=== PATIENT | male | born 1975 | race Caucasian/White ===

== ENCOUNTER 2018-10-04 18:23 | Inpatient (IN) | payer MEDICAID ==
[~2018-10-04] VITALS: Ht 180.3 cm; Wt 86.6 kg
[2018-10-04 19:15] VITALS: BP_SYST 101
--- NOTE | 2018-10-04 20:56 | NUR ---
2Patient to ER bed 04 for evaluation. Side rails up. Report given to Eren LLOYD.
--- NOTE | 2018-10-04 20:56 | NUR ---
Pt c/o open sore with redness, swelling, and pain to right elbow x 1 week. Pt states sores keep popping up all over body. Dime sized scab to Right elbow, no drainage to site.
--- NOTE | 2018-10-04 21:30 | NUR ---
ER Dr. Rodney at bedside examining patient.
[2018-10-04] MEDS ORDERED: LORazepam 1 MG TABLET PO ONE (21:45)
[2018-10-04] MEDS ORDERED: IBUPROFEN 800 MG TABLET PO ONE (21:45)
[2018-10-04] MEDS ORDERED: SULFAMETHOXAZOLE/TRIMETHOPR DS 1 TABLET PO ONE (21:45)
--- NOTE | 2018-10-04 22:12 | NUR ---
Pt states "Ibuprofen isn't going to do anything for the pain." "I have a staff infection, Bactrim doesn't work." "I want to speak to the doctor." Pt agrees to take medications and Dr. Wright notified of pt.'s request.
--- NOTE | 2018-10-04 23:16 | NUR ---
Pt refuses IVFs ordered. Lab at bedside. Addendum: 10/04/[address] Wright notified.
[2018-10-04] MEDS: NS 1000 ML IV.SOLN IV ONE ×2 (23:31→23:42)
[2018-10-04 23:38] LABS: HEMOGLOBIN 13.8 g/dL (14.0-18.0); RED BLOOD CELL COUNT(AUTO) 4.59 MIL/uL (4.2-6.2); WHITE BLOOD COUNT (AUTO) 12.7 K/uL (4.8-10.8)
[2018-10-04 23:39] LABS: BASOPHILS % (AUTO) 0.5 % (0.0-2.0); EOSINOPHILS % (AUTO) 1.7 % (0.0-4.0); HEMATOCRIT 41.4 % (36-54); LYMPHOCYTES # (AUTO) 1.9 K/uL (1.0-5.5); MEAN CORPUSCULAR HEMOGLOBIN 30 pg (27-31); MEAN CORPUSCULAR HGB CONC 33 % (32-36); MEAN CORPUSCULAR VOLUME 90 fL (79.0-98.0); MONOCYTES # (AUTO) 1.1 K/uL (0.0-1.0); MONOCYTES % (AUTO) 8.5 % (1.7-9.3); NEUTROPHILS # (AUTO) 9.5 K/uL (1.8-7.7); NEUTROPHILS % (AUTO) 74.3 % (40.0-70.0); PLATELET COUNT (AUTO) 348 K/uL (130-430); RED CELL DISTRIBUTION WIDTH 12.5 % (9.0-15.0)
[2018-10-04 23:40] LABS: BASOPHILS # (AUTO) 0.1 K/uL (0.0-0.2); EOSINOPHILS # (AUTO) 0.2 K/uL (0.0-0.4)
[2018-10-04 23:41] LABS: CALCIUM 8.4 mg/dL (8.4-11.0); CREATININE 0.87 mg/dL (0.55-1.30); POTASSIUM 4.5 mmol/L (3.5-5.1)
[2018-10-04 23:46] LABS: ALBUMIN 3.4 g/dL (3.4-4.8); TOTAL BILIRUBIN 0.3 mg/dL (0.0-1.0)
[2018-10-04 23:52] LABS: PROTHROMBIN TIME 10.1 SECS (9.5-12.5)
[2018-10-05] MEDS ORDERED: VANCOMYCIN HCL 1,000 MG in NS 250 ML IV ONE ×2
[2018-10-05] MEDS ORDERED: VANCOMYCIN HCL 1000 MG/VIAL IV ONE (00:11)
[2018-10-05] MEDS ORDERED: fentaNYL CITRATE/PF 100 MCG/2 ML AMP IVP ONE (00:30)
--- NOTE | 2018-10-05 00:53 | NUR ---
Transfer to Med Surg. IV present no signs or symptoms of infiltration.
--- NOTE | 2018-10-05 00:53 | NUR ---
Patient will be admitted to care of Dr. Iyer. Admitted to Med Surg unit. Will go to room 124 B. Belongings list completed. Summary report printed. Report will be given at bedside.
--- NOTE | 2018-10-05 01:00 | NUR ---
ADMISSION NOTES PATIENT RECEIVED FROM ER FOR RT ARM CELLULITIS. PATIENT AAO X4. DENIES PAIN AT THIS TIME. BREATHING UNLABORED ON ROOM AIR. RT LOWER ARM RED AND SWOLLEN. PATIENT ORIENTED TO ROOM, BED CONTROLS, TV AND CALL LIGHT SYSTEM. BED IN LOWEST LOCKED POSITION. PLAN OF CARE REVIEWED WITH PATIENT.
[2018-10-05 01:52] VITALS: BP_SYST 118
--- NOTE | 2018-10-05 03:15 | NUR ---
ROUNDS PATIENT RESTING IN BED. INTERMITTENT SNORING NOTED. NO DISTRESS NOTED.
--- NOTE | 2018-10-05 06:42 | NUR ---
CLOSING NOTES PATIENT RESTING IN BED. BREATHING UNLABORED. PATIENT NEEDS ATTENDED. CALL LIGHT WITH IN REACH. BED IN LOWEST LOCKED POSITION.
[2018-10-05 08:00] VITALS: BP_SYST 117
--- NOTE | 2018-10-05 08:00 | NUR ---
OPENING NOTES Patient received resting in bed A&o x4, patient denies any acute distress or pain at this time, breathing is even and unlabored on room air, educated patient on plan of care and call light system, will continue to monitor, safety precautions in place, call light within reach.
--- NOTE | 2018-10-05 10:15 | NUR ---
NOTES patient is resting in bed A&O x4, patient denies any acute distress or pain at this time, breathing even and unlabored on room air, will continue to monitor, safety precautions in place, call light within reach.
--- NOTE | 2018-10-05 11:33 | NUR ---
CONSULT REASON FOR CONSULT: STAPH INFECTION PERSON I SPOKE WITH: DR. COLLINS (SPOKE TO THE DOCTOR IN PERSON) ORDERING PHYSICIAN: DR. DOBBS FABRICATION TECHNICIAN PHONE NUMBER: [phone]
[2018-10-05] MEDS ORDERED: VANCOMYCIN HCL 1,500 MG in NS 250 ML IV SCH (12:00)
[2018-10-05 12:08] VITALS: BP_SYST 107
--- NOTE | 2018-10-05 12:12 | NUR ---
NOTES patient is resting in bed A&O x4, patient denies any acute distress or pain, IV antibiotics infusing as ordered, will continue to monitor, breathing is even and unlabored on room air, safety precautions in place, call light within reach.
[2018-10-05] MEDS ORDERED: VANCOMYCIN HCL 1,000 MG in NS 250 ML IV SCH (12:18)
[2018-10-05] MEDS: CLINDAMYCIN 600 MG in D5W 50 ML IV SCH ×2 (14:27→17:55)
--- NOTE | 2018-10-05 14:50 | NUR ---
NOTES patient is resting in bed on his phone, patient denies any acute distress or pain at this time, patient tolerated lunch well, will continue to monitor, safety precautions in place, call light within reach.
--- NOTE | 2018-10-05 16:45 | NUR ---
NOTES patient is resting in bed, patient is A&O x4, patient denies any acute distress or pain, breathing is even and unlabored on room air, will continue to monitor, safety precautions in place, call light within reach.
[2018-10-05 17:11] VITALS: BP_SYST 108
--- NOTE | 2018-10-05 18:39 | NUR ---
CLOSING NOTE PATIENT IS RESTING IN BED A&O X4, IVF INFUSING WELL ORDERED, PATIENT DENIES ANY ACUTE DISTRESS, PAIN IS CONTROLLED AT THIS TIME, BREATHING IS EVEN AND UNLABORED ON ROOM AIR, ALL NEEDS WERE MET THROUGHOUT SHIFT, WILL ENDORSE REPORT TO ONCOMING NURSE, SAFETY PRECAUTIONS IN PLACE, CALL LIGHT WITHIN REACH.
--- NOTE | 2018-10-05 19:10 | NUR ---
OPENING NOTES RECEIVED PATIENT IN BED AAOX4. BREATHING UNLABORED ON ROOM AIR. LFA IV LINE INTACT. PLAN OF CARE REVIEWED WITH PATIENT. CALL LIGHT WITH IN EASY REACH.
[2018-10-05] MEDS ORDERED: MORPHINE 4 MG/ML INJ. SYRINGE IVP PRN (19:15)
[2018-10-05 20:42] VITALS: BP_SYST 137
[2018-10-05] MEDS: MORPHINE 4 MG/ML INJ. SYRINGE IVP PRN (20:48)
--- NOTE | 2018-10-05 20:48 | NUR ---
PAIN MGT PATIENT MEDICATED WITH MORPHINE ORDERED FOR C/O RT ARM PAIN 04/28. POSSIBLE SIDE EFFECTS OF MEDICATION DISCUSSED WITH PATIENT. VITAL SIGNS STABLE.
[2018-10-06 00:08] VITALS: BP_SYST 121
[2018-10-06] MEDS: CLINDAMYCIN 600 MG in D5W 50 ML IV SCH ×4 (00:14→17:46)
--- NOTE | 2018-10-06 00:14 | NUR ---
ATB PATIENT DUE ANTIBIOTIC INFUSED. IV LINE PATENT. VITAL SIGNS STABLE. CALL LIGHT WITH IN EASY REACH.
[2018-10-06] MEDS ORDERED: VANCOMYCIN HCL 1,500 MG in NS 250 ML IV SCH (01:00)
[2018-10-06] MEDS: VANCOMYCIN HCL 1,500 MG in NS 250 ML IV SCH ×2 (01:01→12:37)
[2018-10-06] MEDS: MORPHINE 4 MG/ML INJ. SYRINGE IVP PRN ×3 (03:33→17:46)
--- NOTE | 2018-10-06 08:00 | NUR ---
OPENING NOTE patient received resting in bed A&O x4, breathing is even and unlabored on room air, no acute distress noted, pain is controlled at this time, educated patient on plan of care and call light system, will continue to monitor, safety precautions in place, call light within reach.
--- NOTE | 2018-10-06 10:12 | NUR ---
NOTES PATIENT IS RESTING IN BED WITH EYES CLOSED, NO ACUTE DISTRESS OR PAIN IS NOTED, BREATHING IS EVEN AND UNLABORED, IVF INFUSING WELL WITH NO SIGNS OF INFILTRATION, WILL CONTINUE TO MONITOR, SAFETY PRECAUTIONS IN PLACE, CALL LIGHT WITHIN REACH.
--- NOTE | 2018-10-06 12:01 | NUR ---
SS NOTES: PLANER SETUP OPERATOR met with pt for referral of "homelessness" and "assessment". PLANER SETUP OPERATOR verified demographic information and changes have been made. Per pt he was recently released from shelter after 9 months and was living with his girlfriend until his admission in the hospital. Per pt he is currently homeless with no source of income. Pt denies any history of mental health or detox admissions but has a history of substance abuse and denies current use. Pt denies depression and anxiety. Pt denies any support system stating he has 2 elderly aunts but no financial help. PLANER SETUP OPERATOR provided pt with community resources, homeless waiver (attached on chart), and [facility] halfway list. PLANER SETUP OPERATOR informed pt of taxi voucher availability (prefers to be dropped off around [place] and [facility] in the [facility]) and informed security on clothing needs. SS will remain available when needed upon discharge.
[2018-10-06 12:02] VITALS: BP_SYST 110
--- NOTE | 2018-10-06 12:45 | NUR ---
NOTES PATIENT IS RESTING IN BED A&O X4, PATIENT DENIES ANY ACUTE DISTRESS, PAIN IS CONTROLLED AT THIS TIME, FRIEND IS AT BEDSIDE, WILL CONTINUE TO MONITOR, SAFETY PRECAUTIONS IN PLACE, CALL LIGHT WITHIN REACH.
--- NOTE | 2018-10-06 14:57 | NUR ---
NOTES PATIENT IS RESTING IN BED WITH EYES CLOSED, NO ACUTE DISTRESS OR PAIN IS NOTED, BREATHING EVEN AND UNLABORED, WILL CONTINUE TO MONITOR, SAFETY PRECAUTIONS IN PLACE, CALL LIGHT WITHIN REACH.
[2018-10-06 16:38] VITALS: BP_SYST 121
--- NOTE | 2018-10-06 16:55 | NUR ---
WOUND EVALUATION: Wound Consult received from Dr. Iyer. Thank you, Dr. Iyer, for the consult. Patient received in a [place] Bed with an Isoflex WENDIE mattress, awake, alert, and oriented. Patient is able to turn in bed and ambulate independently. Ramirez Score is a 21. Past Medical History: No significant past medical history. Patient was admitted to [facility] to right forearm swelling and redness as well as tenderness for the past few days. The patient reported having similar symptoms and he was in was in [facility] recently and believes that he was exposed to a Staphylococcus infection. Recent Labs: WBC 12.7, RBC 4.59, hemoglobin 13.8, hematocrit 41.4, glucose 122, alkaline phosphatase 44. Blood chemistry otherwise within normal limits. Microbiology: Blood culture results 2 in progress. MRSA screen results in progress. Patient is currently on vancomycin and clindamycin intravenous antibiotics. Wound Assessment: 1. Right posterior forearm, inferior to elbow: Abscess, present on admission. Wound bed has 80% yellow eschar, 20% black eschar. No odor, no drainage. Periwound and surrounding tissue has calor, 2+ edema, and is erythematous. Several white pustules present on surrounding skin. Site measures 1.2 cm x 1.3 cm. Recommend: Cover site with foam dressing. Monitor site every shift for drainage or opening. Recommend culture site if site starts draining or opens. 2. Right chest, inferior to [place]: Chronic wound, present on admission. Wound bed has 100% brown scab. No odor, no drainage. Periwound pink. Wound measures 0.8 cm x 0.7 cm. Patient states that this wound has drained purulent drainage in the past. Recommend: No dressing needed. Continue to monitor site every shift for worsening condition. Also recommend: Reposition patient every 2 hours with pillow support and off-load pressure areas with pillows for pressure re-distribution. Offload, elevate and float bilateral heels with pillows. Perform skin care and monitor skin integrity Q shift. Use moisture barrier cream on buttocks and other moisture susceptible areas QID and as needed for soiling. Place patient on a low air-loss mattress. Recommend surgical consult for Right posterior forearm abscess. Recommend wound culture when wound opens or drains. Addendum: 10/06/18 at 1859 by Russell Cintron RN Error. Second to last paragraph should read: Encourage patient to reposition every 2 hours with pillow support and off-load pressure areas with pillows for pressure re-distribution.
--- NOTE | 2018-10-06 16:55 | NUR ---
NOTES WOUND CARE NURSE ASSESSED PATIENT RIGHT ARM, PATIENT TOLERATED WELL, NO ACUTE DISTRESS NOTED, WILL CONTINUE TO MONITOR, SAFETY PRECAUTIONS IN PLACE, CALL LIGHT WITHIN REACH.
--- NOTE | 2018-10-06 18:29 | NUR ---
CLOSING NOTE PATIENT IS RESTING IN BED A&O X4, NO ACUTE DISTRESS NOTED, PAIN IS CONTROLLED AT THIS TIME, ALL NEEDS WERE MET THROUGHOUT SHIFT, WILL ENDORSE REPORT TO ONCOMING NURSE, SAFETY PRECAUTIONS IN PLACE, CALL LIGHT WITHIN REACH.
[2018-10-06 19:15] VITALS: BP_SYST 133
--- NOTE | 2018-10-06 19:15 | NUR ---
OPENING NOTE RECEIVED ENDORSEMENT REPORT FROM DAY NURSE SHABBIR AT BEDSIDE. PT RESTING IN BED COMFORTABLY. PT IS AOX4. NO SOB NOTED. NO DISTRESS NOTED. NO S/S OF PAIN NOTED. PT DENIES PAIN AT THIS TIME. IV ON LEFT FA 22G. IV CLEAN DRY AND INTACT. PT ORIENTED TO HOSPITAL ROOM. PT INSTRUCTED HOW TO USE CALL LIGHT AND ROOM PHONE. PT VERBALIZED UNDERSTANDING. SAFETY MEASURES IN PLACE. CALL LIGHT/ROOM PHONE WITHIN REACH, BED WHEELS LOCKED, BED IN LOWEST POSITION, BED RAILS UP X 2, BED ALARM ON. NO OTHER NEEDS AT THIS TIME. WILL CONTINUE TO MONITOR PT AND CONTINUE POC.
--- NOTE | 2018-10-06 20:10 | NUR ---
RN ROUNDS PT RESTING IN BED COMFORTABLY. NO SOB NOTED. NO DISTRESS NOTED. NO S/S OF PAIN NOTED. PT DENIES PAIN AT THIS TIME. SAFETY MEASURES IN PLACE. WILL CONTINUE TO MONITOR PT AND CONTINUE POC.
--- NOTE | 2018-10-06 22:10 | NUR ---
RN ROUNDS PT RESTING IN BED COMFORTABLY WITH EYES CLOSED. NO SOB NOTED. NO DISTRESS NOTED. NO S/S OF PAIN NOTED. NO NEEDS AT THIS TIME. SAFETY MEASURES IN PLACE. WILL CONTINUE TO MONITOR PT AND CONTINUE POC.
[2018-10-07] MEDS: CLINDAMYCIN 600 MG in D5W 50 ML IV SCH ×4 (00:20→18:38)
[2018-10-07] MEDS: MORPHINE 4 MG/ML INJ. SYRINGE IVP PRN ×3 (00:23→18:47)
--- NOTE | 2018-10-07 00:23 | NUR ---
MED PASS PT RESTING IN BED COMFORTABLY. NO SOB NOTED. NO DISTRESS NOTED. SCHEDULED MEDICATIONS ADMINISTERED ORDERED. PT REPORTS 8/10 RIGHT ARM PAIN. PRN MORPHINE 4 MG IVP ADMINISTERED ORDERED. PT TOLERATED WELL. NO OTHER NEEDS AT THIS TIME. SAFETY MEASURES IN PLACE. WILL CONTINUE TO MONITOR PT AND CONTINUE POC.
[2018-10-07 00:29] VITALS: BP_SYST 137
[2018-10-07] MEDS: VANCOMYCIN HCL 1,500 MG in NS 250 ML IV SCH ×2 (01:43→13:30)
--- NOTE | 2018-10-07 02:16 | NUR ---
RN ROUNDS PT RESTING IN BED COMFORTABLY IN BED WITH EYES CLOSED. NO SOB NOTED. NO DISTRESS NOTED. NO S/S OF PAIN NOTED. SAFETY MEASURES IN PLACE. WILL CONTINUE TO MONITOR PT AND CONTINUE POC.
--- NOTE | 2018-10-07 06:51 | NUR ---
CLOSING NOTE PT RESTING IN BED COMFORTABLY. PT IS AOX4. NO SOB NOTED. NO DISTRESS NOTED. NO S/S OF PAIN NOTED. PT DENIES PAIN AT THIS TIME. ALL NEEDS MET THROUGHOUT SHIFT. ALL SCHEDULED MEDICATIONS ADMINISTERED ORDERED. NO FURTHER NEEDS AT THIS TIME. SAFETY MEASURES IN PLACE. WILL ENDORSE PT CARE TO DAY NURSE AT BEDSIDE.
[2018-10-07 07:53] LABS: CALCIUM 8.4 mg/dL (8.4-11.0); CREATININE 0.87 mg/dL (0.55-1.30); POTASSIUM 4.4 mmol/L (3.5-5.1)
--- NOTE | 2018-10-07 08:00 | NUR ---
Opening Note Report received from Jeanette HARMON shift nurse. Patient is resting in bed. No c/o pain at the moment. Right elbow dressing is intact. Call light is within reach and bed is in low position. Will continue to monitor.
[2018-10-07 08:06] VITALS: BP_SYST 98
[2018-10-07 08:09] LABS: TOTAL BILIRUBIN 0.5 mg/dL (0.0-1.0)
--- NOTE | 2018-10-07 10:10 | NUR ---
Rounds Patient is resting in bed. No signs of pain at the moment.
--- NOTE | 2018-10-07 12:15 | NUR ---
IV Site New IV site started on the LAC 22g, using aseptic technique.
[2018-10-07 12:47] VITALS: BP_SYST 117
--- NOTE | 2018-10-07 14:30 | NUR ---
Rounds Patient is resting in bed. No signs of distress noted
--- NOTE | 2018-10-07 16:10 | NUR ---
Closing Note Endorsed care to Cathleen LLOYD. Patient is in stable condition. No signs of distress noted.
--- NOTE | 2018-10-07 16:19 | NUR ---
PAGED PAGED DILIA BUSH AT [phone] SPOKE WITH IZABELLA.
--- NOTE | 2018-10-07 16:21 | NUR ---
SPOKE WITH DR LIN MADE A GRAY OF PT POSITIVE FOR MRSA NARES -NO NEW ORDERS GIVEN. ASKED MD IF HE WANTED TO GIVE BACTROBAN STATED NO.
[2018-10-07 16:35] VITALS: BP_SYST 115
--- NOTE | 2018-10-07 18:50 | NUR ---
pt c/o pain given , morphine prn as ordered. no other distress noted. safety maintained.
[2018-10-07 19:10] VITALS: BP_SYST 109
--- NOTE | 2018-10-07 19:10 | NUR ---
OPENING NOTE RECEIVED ENDORSEMENT REPORT FROM DAY NURSE TOMASA AT BEDSIDE. PT RESTING IN BED COMFORTABLY. PT IS AOX4. NO SOB NOTED. NO DISTRESS NOTED. NO S/S OF PAIN NOTED. PT DENIES PAIN AT THIS TIME. IV ON LEFT FA 22G. IV CLEAN DRY AND INTACT. PT ORIENTED TO HOSPITAL ROOM. PT INSTRUCTED HOW TO USE CALL LIGHT AND ROOM PHONE. PT VERBALIZED UNDERSTANDING. SAFETY MEASURES IN PLACE. CALL LIGHT/ROOM PHONE WITHIN REACH, BED WHEELS LOCKED, BED IN LOWEST POSITION, BED RAILS UP X 2, BED ALARM ON. NO OTHER NEEDS AT THIS TIME. WILL CONTINUE TO MONITOR PT AND CONTINUE POC.
--- NOTE | 2018-10-07 19:43 | NUR ---
closing note all needs met through shift, safety maintained, care endorsed to night supervisor.
--- NOTE | 2018-10-08 00:45 | NUR ---
MED PASS PT RESTING IN BED COMFORTABLY. NO SOB NOTED. NO DISTRESS NOTED. SCHEDULED MEDICATIONS ADMINISTERED ORDERED. PT TOLERATED WELL. NO OTHER NEEDS AT THIS TIME. SAFETY MEASURES IN PLACE. WILL CONTINUE TO MONITOR PT AND CONTINUE POC.
[2018-10-08 00:55] VITALS: BP_SYST 117
[2018-10-08] MEDS: CLINDAMYCIN 600 MG in D5W 50 ML IV SCH ×3 (00:58→11:38)
[2018-10-08] MEDS: VANCOMYCIN HCL 1,500 MG in NS 250 ML IV SCH ×2 (02:06→13:08)
--- NOTE | 2018-10-08 05:40 | NUR ---
RN ROUNDS PT RESTING IN BED COMFORTABLY WITH EYES CLOSED. NO SOB NOTED. NO DISTRESS NOTED. NO S/S OF PAIN NOTED. SAFETY MEASURES IN PLACE. WILL CONTINUE TO MONITOR PT AND CONTINUE POC.
[2018-10-08] MEDS: MORPHINE 4 MG/ML INJ. SYRINGE IVP PRN (05:41)
--- NOTE | 2018-10-08 07:50 | NUR ---
INITIAL NOTE RECEIVED PT IN BED, NO S/S OF DISTRESS OR SOB NOTED, PT HAS NO C/O PAIN AT THIS TIME, PT IN STABLE CONDITION, PT AAOX4, VERBAL. PT HAS ABD ON LEFT ARM, CLEAN AND DRY. BED AT LOWEST POSITION, CALL LIGHT WITHIN REACH, WILL CONTINUE TO MONITOR PT FOR ANY CHANGES, FALL PRECAUTIONS IN PLACE. PT ON ISOLATION. IV CATHETER, PATENT, NO SIGNS OF INFECTION OR INFILTRATION NOTED, SALINE LOCK.
--- NOTE | 2018-10-08 10:20 | NUR ---
ROUNDS PT IN BED, NO S/S OF DISTRESS OR SOB NOTED, PT HAS NO C/O PAIN AT THIS TIME, PT IN STABLE CONDITION. PT WATCHING TV, WILL CONTINUE TO MONITOR PT FOR ANY CHANGES.
--- NOTE | 2018-10-08 11:50 | NUR ---
Dietitian Recommendations * Recommend regular diet w/ Brian BID. (Brian BID provides an additional 180 kcal and 5g of Pro per day.) Please see Nutritional Assessment for details. RADU, RD
--- NOTE | 2018-10-08 12:07 | NUR ---
ID MD DR COLLINS WAS CALLED RE: MEDICATIONS ORDERS. SPOKE TO EKATERINA
[2018-10-08 12:42] VITALS: BP_SYST 100
[2018-10-08] MEDS ORDERED: MUPIROCIN 2% TOPICAL OINTMENT 22 GM NS ONE (12:45)
--- NOTE | 2018-10-08 13:53 | NUR ---
Chef'S Assistant Note Patient confirmed he needs a ride to the corner of [facility] where he shelters, [address] [facility] in [place]. AUTOMATIC LUMP MAKING MACHINE TENDER obtained a quote from the transport [email or web address], , and spoke to Florence. They will pick patient up from the lobby at 16:00. Obtained the fare from Cardiograph Operator Jaimee and gave to [employer] Hat Production Supervisor Janeth. Notified patient nurse Angi.
[2018-10-08 15:24] VITALS: BP_SYST 101
--- NOTE | 2018-10-08 16:10 | NUR ---
D/C Patient Patient given medication reconciliation form and D/C instructions. Exit Care provided. Patient verbalized understanding. MD discussed with patient the results and treatment provided. Ambulatory with steady gait for discharge to home. Patient in stable condition, ID band removed. IV catheter removed, intact and dressing applied, no active bleeding. Rx of doxycycline and clindamycin given. Patient educated on pain management. All belongings sent with patient. Per Dr Astorga pt to have bactroban for mrsa of nares, per md castillo for pt to take bactroban from hospital, given to pt and educated on how to use. cryogenic transport driver dean sanchez, [id number] taxi number, white cab.
[2018-10-08 16:45] VITALS: BP_SYST 101
[2018-10-08] MEDS ORDERED: MUPIROCIN 2% TOPICAL OINTMENT 22 GM NS SCH (21:00)
== END 2018-10-08 16:10 | disposition home or self-care (01) | DRG 383 ==
LOC: SED 18:23 → STU 10-05 00:34 → SMU 10-05 00:52
PROVIDERS: ADMIT Internal Medicine Hospice and Palliative Medicine; ATTEND Internal Medicine Hospice and Palliative Medicine
DX: L03.113 Cellulitis of right upper limb (principal); B95.62 Methicillin resistant Staphylococcus aureus infection as the cause of diseases classified elsewhere; L02.413 Cutaneous abscess of right upper limb; I10 Essential (primary) hypertension
CPT/HCPCS: 36415; 80053; 80202-TC; 83605; 85025; 85610-TC; 85730-TC; 87040-TC; 87081; 96365; 96366; 96375; 99285; J2270; J3010; J3370; J3490; J7050; J7060